=== PATIENT | male | born 1965 | race Caucasian/White ===

== ENCOUNTER 2024-05-18 09:44 | Emergency (ER) | payer OTHER, SELFPAY ==
[2024-05-18 10:40] VITALS: BP 120/78; PULSE 71; RESP 18; TEMP 37.4; O2SAT 96; BMI 33.7
--- NOTE | 2024-05-18 10:50 | USCV_ITS ---
Grant Amador Age: 58 Gender: M : 1965 Exam Date: 05/18/2024 11:07 Ordering Phys: Pio Galeana DO Technologist: [place] [facility] [place]: lt leg pain and swelling PROCEDURES: Venous duplex imaging was performed in only the left lower extremity. The following venous structures were evaluated: common femoral vein, profunda vein, proximal portion of the greater saphenous vein, superficial femoral vein, and the popliteal vein. In addition, the posterior tibial and peroneal trunk were evaluated. FINDINGS: Normal 2-D Doppler and augmentation and compressibility throughout the lower extremity venous structures. Additional imaging through the proximal calf veins also reveals no thrombus. Limited evaluation of the greater saphenous vein is patent with no thrombus. CONCLUSIONS No DVT left lower extremity. Dr. Carol Quinn DO (Electronically Signed) Final Date: 18 May 2024 11:36 S
--- NOTE | 2024-05-18 11:55 | ED_ITS ---
HPI - Extremity Problem 2 General: Chief complaint: Extremity Problem,Nontraumatic Stated complaint: Left Leg pain Time Seen by Provider: 05/18/24 11:17 Source: patient Mode of arrival: ambulatory Limitations: no limitations History of Present Illness: Patient is a nice 58-year-old male who presents to ED today with a complaint of skin changes involving his left lower extremity. Patient states on Saturday he began running fevers as high as 101 accompanied with body aches. He states over the weekend these have subsided. He began noticing skin changes to the anterior aspect of his left lower leg. He does have a psoriatic area that he uses [id number] topical therapy on. States the anterior aspect of his left lower leg is red and warm. No known previous history of cellulitis. Vital signs are stable upon arrival to the emergency department. He has no joint pain. MD Complaint: extremity pain Onset (ago): day(s) Location: left and lower extremity Radiation: none Relieving factors: nothing Exacerbating factors: nothing Associated symptoms: Reports fever(s), rash and other (fevers a few days ago but subsided now); Deny chest pain Related Data Previous Rx's Medication Instructions Recorded clindamycin HCl 300 mg capsule 300 mg PO Q6H 7 days #28 caps 05/18/24 Allergies Allergy/AdvReac Type Severity Reaction Status Date / Time No Known Allergies Allergy Verified 05/18/24 10:46 Review of Systems 2 Const: Reports: fever(s) and body aches Card: Denies: chest pain Resp: Denies: dyspnea GI: Denies: abdominal pain, vomiting or diarrhea Musc: Reports: extremity pain; Denies: neck pain, back pain, joint pain or joint swelling Skin/Breast: Reports: rash and erythema Neuro: Denies: numbness in extremities, weakness in extremities, sensory changes or difficulty walking Physical Exam 2 Const: COMMON NORMALS: no acute distress, average body habitus, patient oriented x3, no limitations, healthy appearing, alert and well nourished Resp: COMMON NORMALS: normal respiratory effort and clear to auscultation bilaterally AUSCULTATION: clear to auscultation bilaterally Cardio: COMMON NORMALS: regular rate and regular rhythm RATE: regular rate RHYTHM: regular rhythm Extremity: COMMON NORMALS: full ROM, capillary refill normal, no joint enlargement, no clubbing, cyanosis or edema, no calf tenderness and no pedal edema GENERAL: Yes normal exam except as noted LEFT LOWER EXTREMITY: Yes lower leg OTHER: some areas of blanching erythema cellulitis along with hemorrhagic appearing skin changes involving anterior left lower leg; psoriatic plaque; no lymphangitic streaking; L inguinal lymphadenopathy noted on US Neuro: COMMON NORMALS: patient oriented x3, moves all extremities, no focal motor deficits, no sensory deficits noted and gait normal S ENSORIUM/ORIENTATION: Yes alert Course 2 Vital Signs: Vital signs: Vital Signs Temperature 99.3 F 05/18/24 10:40 Pulse Rate 71 05/18/24 10:40 Respiratory Rate 18 05/18/24 10:40 Blood Pressure 120/78 05/18/24 10:40 Pulse Oximetry 96 05/18/24 10:40 Oxygen Delivery Me thod Room Air 05/18/24 10:40 MDM - Extremity (Nontraumatic) Medical Decision Making Patient here for probable cellulitis involving the anterior aspect of his left lower extremities. Vital signs are stable. His white count is normal. Remainder of blood work is nonactionable. He does have a significantly elevated CRP. Patient had an ultrasound ordered from triage showing no DVT but does have reactive inguinal lymphadenopathy. Patient was given a dose of IV antibiotics prior to discharge. Return ED precautions given. Medical Records I reviewed the patient's medical records. Lab Data I reviewed the patient's lab results. 05/18/24 13:14 05/18/24 13:14 Laboratory Results WBC 8.24 10^3/uL (3.29-11.43) 05/18/24 13:14 RBC 4.93 10^6/uL (3.85-5.65) 05/18/24 13:14 Hgb 14.80 g/dL (11.27-16.99) 05/18/24 13:14 Hct 44.9 % (37-53) 05/18/24 13:14 MCV 91.1 fl (82-101) 05/18/24 13:14 MCH 30.0 pg (27-33) 05/18/24 13:14 MCHC 33.0 g/dL (30-55) 05/18/24 13:14 RDW 13.2 % (12.1-15.1) 05/18/24 13:14 Plt Count 191 10^3/cmm (157-399) 05/18/24 13:14 MPV 9.0 fL (7.4-10.4) 05/18/24 13:14 Neut % (Auto) 68.9 % 05/18/24 13:14 Lymph % (Auto) 18.9 % 05/18/24 13:14 Wallace % (Auto) 10.7 % 05/18/24 13:14 Eos % (Auto) 0.5 % 05/18/24 13:14 Baso % (Auto) 0.5 % 05/18/24 13:14 Neut # (Auto) 5.68 10^3/uL (1.8-7.7) 05/18/24 13:14 Lymph # (Auto) 1.6 10^3/uL (0.8-4.8) 05/18/24 13:14 Wallace # (Auto) 0.9 10^3/uL (0.2-0.9) 05/18/24 13:14 Eos # (Auto) 0.0 10^3/uL (0.0-0.8) 05/18/24 13:14 Baso # (Auto) 0.0 10^3/uL (0.0-0.1) 05/18/24 13:14 Nucleated RBC % (auto) 0 % 05/18/24 13:14 Nucleated RBCs # 0.0 /100WBC 05/18/24 13:14 PT 15.30 SECONDS (12.1-14.9) H 05/18/24 13:14 INR 1.17 (0.8-1.2) 05/18/24 13:14 APTT 36.0 SECONDS (23.9-36.7) 05/18/24 13:14 Sodium 135 mmol/L (136-145) L 05/18/24 13:14 Potassium 4.2 mmol/L (3.5-5.1) 05/18/24 13:14 Chloride 99 mmol/L (98-107) 05/18/24 13:14 Carbon Dioxide 25 mmol/L (22-29) 05/18/24 13:14 Anion Gap 15.2 (5-19) 05/18/24 13:14 BUN 10 mg/dL (8-23) 05/18/24 13:14 Creatinine 1.0 mg/dL (0.7-1.2) 05/18/24 13:14 GFR Calculation 76.2 mL/min (90-130) L 05/18/24 13:14 Glucose 104 mg/dL (65-115) 05/18/24 13:14 Calculated Osmolality 279 mOsm/kg (285-295) L 05/18/24 13:14 Calcium 8.3 mg/dL (8.5-10.5) L 05/18/24 13:14 Total Bilirubin 0.7 mg/dL (0.15-1.2) 05/18/24 13:14 AST 17 U/L (0-40) 05/18/24 13:14 ALT 21 U/L (0-41) 05/18/24 13:14 Alkaline Phosphatase 105 U/L (40-130) 05/18/24 13:14 C-Reactive Protein 200.7 mg/L (0.0-4.9) H 05/18/24 13:14 Total Protein 7.5 g/dL (6.6-8.7) 05/18/24 13:14 Albumin 3.9 g/dL (3.5-5.2) 05/18/24 13:14 Globulin 3.6 g/dL (1.3-4.6) 05/18/24 13:14 XR interpretation done by ED provider, pending radiology final review (per Lew Marie) Discharge Plan Discharge Patient Disposition: Home Clinical Impression: Cellulitis Qualifiers: Site of cellulitis: extremity Site of cellulitis of extremity: lower extremity Laterality: left Qualified Code(s): L03.116 - Cellulitis of left lower limb Condition: Stable Prescriptions: New clindamycin HCl 300 mg capsule 300 mg PO Q6H 7 Days Qty: 28 0RF Discharge Orders: Discharge ED (Routine); Ordered 05/18/24 Ordered By: Sierra Messer Patient Instructions: Cellulitis (ED) Activity Restrictions/Additional Instructions: Please follow-up with your primary care later this week for reevaluation. As we discussed, you need to return the emergency department for worsening rash, streaking up your leg, return of fevers, generally feeling worse or unwell, or any other concerns you may have. Coding Level of Care Code ED Chamber Magistrate for Miriam Camargo
[2024-05-18 13:15] VITALS: BP 127/72; PULSE 61; O2SAT 96
[2024-05-18 13:43] LABS: Basophils % 0.5 %; Eosinophils % 0.5 %; Hematocrit 44.9 % (37-53); Lymphocytes # 1.6 10^3/uL (0.8-4.8); Lymphocytes % 18.9 %; Mean Corpuscular Volume 91.1 fl (82-101); Monocytes # 0.9 10^3/uL (0.2-0.9); Monocytes % 10.7 %; Neutrophils # 5.68 10^3/uL (1.8-7.7); Neutrophils % 68.9 %; Nucleated Red Blood Cells % 0 %; Platelet Count 191 10^3/cmm (157-399); Red Blood Count 4.93 10^6/uL (3.85-5.65); Red Cell Distribution Width 13.2 % (12.1-15.1); White Blood Count 8.24 10^3/uL (3.29-11.43)
[2024-05-18 13:51] LABS: Alanine Aminotransferase 21 U/L (0-41); Albumin Level 3.9 g/dL (3.5-5.2); Alkaline Phosphatase 105 U/L (40-130); Anion Gap 15.2 (5-19); Aspartate Amino Transferase 17 U/L (0-40); Blood Urea Nitrogen 10 mg/dL (8-23); C Reactive Protein 200.7 mg/L (0.0-4.9); Calcium 8.3 mg/dL (8.5-10.5); Carbon Dioxide 25 mmol/L (22-29); Chloride 99 mmol/L (98-107); Creatinine Clr Calc Pharmacy 110.7644; Globulin 3.6 g/dL (1.3-4.6); Glomerular Filtration Rate 76.2 mL/min (90-130); Glucose 104 mg/dL (65-115); Osmolality Calculated 279 mOsm/kg (285-295); Potassium 4.2 mmol/L (3.5-5.1); Sodium 135 mmol/L (136-145); Total Bilirubin 0.7 mg/dL (0.15-1.2); Total Protein 7.5 g/dL (6.6-8.7)
[2024-05-18 13:57] LABS: INR 1.17 (0.8-1.2)
[2024-05-18] MEDS: clindamycin 600 MG/50 ML PREMIX 100 MG IV (14:26)
[2024-05-18 15:05] VITALS: BP 147/82; PULSE 64; O2SAT 96
== END 2024-05-18 15:08 | disposition home or self-care (01) ==
PROVIDERS: Emergency Provider Physician Assistant
DX: L03.116 Cellulitis of left lower limb (principal)
CPT/HCPCS: 80053; 85025; 85610; 85730; 86140; 93971; 96374; 99284; J3490